=== PATIENT | female | born 2000 | race Two or more races ===

== ENCOUNTER 2024-07-04 19:33 | Emergency (ER) | payer MEDICAID, SELFPAY ==
[2024-07-04 19:35] VITALS: BMI 36.8
[2024-07-04 20:32] VITALS: BP 119/73; PULSE 70; RESP 18; TEMP 37.1; O2SAT 98
--- NOTE | 2024-07-04 20:35 | XR_ITS ---
Examination: CT abdomen with intravenous contrast CT pelvis with intravenous contrast 2-D coronal reconstructions 2-D sagittal reconstructions Date and time of exam:July 04, 2024 10:54 PM INDICATIONS: Onset of abdominal pain today. CTDI: vol (mGy) 8.9 DLP: (mGycm) 522 Technique: Multiple axial sections of the abdomen and pelvis have been obtained. 64 slice high-resolution scanner used. 3 mm axial sections have been obtained, post intravenous injection 60 cc Isovue 370 2-D sagittal, coronal reconstructions obtained. Low dose protocols were performed. One or more of the following dose reduction techniques were used; automated exposure control, adjustment of the mA and/or KV according to patient size, use of iterative reconstruction technique. Findings: No focal liver or splenic lesions No gallstones No pancreatic mass No renal or ureteral calculi, no hydronephrosis Normal appendix No bowel obstruction or diverticulitis 20 mm involuting right adnexal cyst Intrauterine device satisfactory position No bladder mass or bladder calculi Osseous structures intact IMPRESSION: No renal or ureteral calculi, no hydronephrosis is Normal appendix 20 mm involuting right adnexal cyst, recommend pelvic sonography follow-up
--- NOTE | 2024-07-04 20:36 | EDNOTE_ITS ---
Nausea/Vomit./Diarrhea-RME/HPI General Chief complaint: Abdominal Pain Stated complaint: LOWER ABD PAIN WITH DIARRHEA Time Seen by Provider: 07/04/24 20:07 Arrival date/time: 07/04/24 19:33 RME / HPI RME / HPI Narrative: 23-year-old female patient came in for evaluation regarding diarrhea. Patient having diarrhea for the last 2 to 3 days, associated with lower abdominal pain, severity of symptoms moderate. Patient is being having loose stool at least every hour according to her. Patient denies any fever denies any vomiting denies any other complaints no medications taken prior to arrival. Related Data Home Medications ?Medication ?Instructions ?Recorded ?Confirmed prenat.vits,christie,xkw-yitq-wiczk 1 tab PO QDAY 12/01/19 06/30/21 Previous Rx's ?Medication ?Instructions ?Recorded docusate sodium 100 mg capsule 100 mg PO BID #60 caps 07/01/21 (Colace) ibuprofen 600 mg tablet 600 mg PO Q6H PRN pain #90 t abs 07/01/21 lanolin 50 % topical ointment 1 applic topical TID PRN skin 07/01/21 irritation #15 tubes Allergies Allergy/AdvReac Type Severity Reaction Status Date / Time No Known Allergies Allergy Unknown Verified 07/04/24 19:35 Review of Systems Review of Systems Narrative Review of Systems: Review of system reviewed and within normal limits except mentioned in HPI ED Exam Narrative Physical exam: VITAL SIGNS: Reviewed. GENERAL APPEARANCE: Alert and interactive, follows commands, no acute distress, HEAD AND FACE: Non-traumatic. ENT: PERRL, pink conjunctivitis, eyelid no trauma, Mucous membrane moist. NECK: Supple, nontender, no nuchal rigidity. CHEST: No tenderness, no crepitus, no paradoxical movement, no retractions. LUNGS: Clear, well ventilated, symmetric, no rales, no wheezing, no ronchi, no stridor, good breath sounds bilaterally. HEART: Regular rate, regular rhythm, no murmur, no gallops. ABDOMEN: Soft, positive bowel sounds, nondistended, no guarding, lower abdominal tenderness, no rebound, no masses, RECTAL: Deferred. GENITAL: Deferred. NEUROLOGICAL: Gross motor function intact sensory function intact, Appropriate for age. MUSCULOSKELETAL: low back nontender, full range of motion. EXTREMITIES: Nontender, full range of motion. SKIN: Color pink, dry, no rash, no lacerations, no abrasions, no contusions. LYMPHATICS: Deferred. Course Quality Measures none Orders Category Date Time Status CT Screening NOW Care 07/04/24 20:[address] abdomen pelvis w con Stat Exams 07/04/24 20:35 Completed CBC Stat Lab 07/04/24 20:50 Completed Comprehensive Metabolic Panel Stat Lab 07/04/24 20:50 Completed HCG Qualitative,Urine Stat Lab 07/04/24 20:52 Completed Lipase Stat Lab 07/04/24 20:50 Completed Prothrombin Time with INR Stat Lab 07/04/24 20:50 Completed UA, C/S IF [Urinalysis, C/S if Indicated] Stat Lab 07/04/24 20:52 Completed Sodium Chloride 0.9% 1000 ml [Ns] 1,000 ml Med 07/04/24 20:36 Discontinued IV 999 mls/hr Vital Signs Vital signs: Vital Signs Temperature 98.7 F 07/04/24 20:32 Pulse Rate 70 07/04/24 20:32 Respiratory Rate 18 07/04/24 20:32 Blood Pressure 119/73 07/04/24 20:32 Pulse Oximetry (%) 98 07/04/24 20:32 Oxygen Delivery Method Room Air 07/04/24 20:32 Nausea/Vomiting/Diarrhea MDM Narrative MDM Narrative:: 23-year-old female patient came in for evaluation regarding diarrhea. Patient having diarrhea for the last 2 to 3 days, associated with lower abdominal pain, severity of symptoms moderate. Patient is being having loose stool at least every hour according to her. Patient denies any fever denies any vomiting denies any other complaints no medications taken prior to arrival. CBC showed no leukocytosis. CMP unremarkable. CT scan of the abdomen and pelvis came back unremarkable except for right adnexal cyst. Urinalysis no UTI results discussed with the patient. Patient appears nontoxic and hemodynamically stable. Patient discharged home and instructed to follow-up with primary care provider in 24 to 48 hours. Ins tructed to return to the emergency department immediately if worsening of symptoms Patient data External records reviewed:: None Clinical information provided by:: patient Social determinants that could affect healthcare access:: none Patient has the following chronic illnesses:: None How is presenting disease/condition affected by chronic disease/condition?: no chronic disease Evaluation data The following diagnostics were reviewed and interpreted by me:: lab results and radiology exam(s) Lab and/or radiology exams considered but not ordered:: None Interpretation Summary: See results MDM Medications / Prescriptions Medications / Prescriptions considered but not ordered:: None Medication administrations:: Medication Administration History Discontinued Medications Sodium Chloride (Ns) 1,000 mls @ 999 mls/hr IV .Q1H1M ONE Stop: 07/04/24 21:36 Last Infusion: 07/04/24 23:03 Dose: Infused Documented By: Admin: 07/04/24 21:26 Dose: 999 mls/hr Documented By: EF IV fluids 1 L Consultations Consultation(s) initiated? (list below): No Diagnosis Nausea Differential Diagnosis: food poisoning, gastroenteritis and dehydration Most likely diagnosis given after review of the tests above:: Gastroenteritis, abdominal pain Admission Indicated Admission indicated?: not indicated Explain why admission is indicated or not indicated:: Stable Admission Request Was there a request for admission?: No Disposition Plan Disposition Plan: Discharge Discharge Attestation Discharge Attestation: The patient was given an opportunity to ask questions and understood the discharge instructions. Discharge instructions specifically effects, indications for sooner follow up or return to the emergency department, and the expected course of current diagnosis. Patient condition: Stable Discharge Plan Plan Patient Disposition: HOME (Self Care) Discharge Disposition comment: stable Prescriptions/Referrals Prescriptions/Med Rec: No Action prenat.vits,christie,xxs-kflf-czhws Tablet 1 tab PO QDAY docusate sodium [Colace] 100 mg capsule 100 mg PO BID Qty: 60 0RF ibuprofen 600 mg tablet 600 mg PO Q6H PRN (Reason: pain) Qty: 90 0RF lanolin 50 % ointment 1 applic topical TID PRN (Reason: skin irritation) Qty: 15 0RF Referrals: No Primary/Family,Physician [Primary Care Provider] - In 1 week Problem List Clinical Impression: Gastroenteritis, Abdominal pain Patient/Caregiver Discharge Instructions Discharge Activity: activity as tolerated Education Materials: Abdominal Pain, ED Gastroenteritis, Noninfectious Additional Instructions: Thank you for the opportunity for serving you today. You are stable for discharged . You are advised to: Follow-up with your PCP in 1 to 2 days Return to ED for worsening of symptoms Increase oral fluids Take [id number] Tylenol or Motrin as needed for pain Print Language: Niuean Stand Alone Forms: Barbara Award Info., Patient Portal Info Letter PA/DIRECTOR PRODUCT SAFETY Supervising Physician PA/DIRECTOR PRODUCT SAFETY Supervising Physician: MD Brianna
[2024-07-04 21:15] LABS: Collection Type, Urine Clean Catch; Squamous Epithelial Cell,Urine 0 /hpf (0-5)
[2024-07-04] MEDS: SODIUM CHLORIDE 0.9% 1000 ML 1,000 ML 999 ML IV (21:26)
[2024-07-04 21:28] LABS: Basophils % (Auto) 1 % (0-2.5); Eosinophils # (Auto) 0.2 Thou/mm3 (0.0-0.5); Eosinophils % (Auto) 3 % (0-10); Hematocrit 35.5 % (36.0-46.0); Immature Granulocytes % (Auto) 0 % (0-0); Immature Granulocytes Auto 0.03 Thou/mm3 (0.00-0.00); Lymphocytes # (Auto) 2.3 Thou/mm3 (1.0-4.8); Lymphocytes % (Auto) 27 % (10-50); Mean Corpuscular HGB Conc 33.8 g/dl (31.0-37.0); Mean Corpuscular Hemoglobin 26.3 pg (25.0-35.0); Mean Corpuscular Volume 78 fL (80-100); Monocytes # (Auto) 0.7 Thou/mm3 (0.0-0.8); Monocytes % (Auto) 9 % (0-12); Neutrophils # (Auto) 5.1 Thou/mm3 (1.8-7.7); Neutrophils % (Auto) 61 % (37-80); Nucleated Red Blood Cell % 0 /100 WBC (0); Platelet Count 265 Thou/mm3 (140-440); Red Blood Count 4.57 Miln/mm3 (4.00-5.20); White Blood Count 8.5 Thou/mm3 (3.6-11.0)
[2024-07-04 21:38] LABS: Bilirubin,Urine Negative (Negative); Blood,Urine Trace (Negative); Clarity,Urine Clear (Clear/Hazy); Color,Urine Lt-Yellow (Lt Yel-Yel); Culture Indicated,Urine Not Indicated; Glucose, Urine Negative (Negative); Ketones,Urine Negative (Negative); Leukocyte Esterase,Urine Positive (Negative); Nitrite,Urine Negative (Negative); PH,Urine 6.5 (5.0-7.0); Protein,Urine Negative (Neg - Trace); RBC,Urine 2 /hpf (0-3); Specific Gravity,Urine 1.014 (1.001-1.035); Urobilinogen,Urine Negative mg/dL (0.0-1.0); WBC,Urine 5 /hpf (0-5)
[2024-07-04 21:59] LABS: HCG Qualitative,Urine Negative
[2024-07-04 22:00] LABS: Alanine Aminotransferase 21 U/L (10-49); Albumin, Serum 4.4 gm/dL (3.5-5.0); Albumin/Globulin Ratio 1.5 (1.2-2.2); Alkaline Phosphatase 99 U/L (46-116); Anion Gap 7 (7-16); Aspartate Amino Transferase 22 U/L (0-34); BUN/Creatinine Ratio 13 Ratio (12-20); Bilirubin,Total 0.3 mg/dL (0.3-1.2); Blood Urea Nitrogen 8 mg/dL (9-23); Carbon Dioxide 24.9 mMol/L (20.0-31.0); Chloride 103 mMol/L (98-107); Creatinine (Component) 0.6 mg/dL (0.6-1.3); Estimated Creatinine Clearance 126.4 mL/min (>60); Glucose 88 mg/dL (74-106); Lipase 38 U/L (12-53); Osmolality,Calculated 267 (275-295); Potassium 3.5 mMol/L (3.4-5.1); Sodium 135 mMol/L (136-145); Total Protein 7.4 gm/dL (5.7-8.2); eGFR > 60 See Note
[2024-07-04 22:05] LABS: Prothrombin Time 10.8 Seconds (9.0-12.2)
== END 2024-07-04 23:55 | disposition home or self-care (01) ==
PROVIDERS: Nurse Practitioner Family; Emergency Provider Emergency Medicine
DX: K52.9 Noninfective gastroenteritis and colitis, unspecified (principal)
CPT/HCPCS: 36415; 74177; 80053; 81001; 81025; 83690; 85025; 85610; 96360; 96361; 99285; A4649; J7030; Q9967